=== PATIENT | female | born 1960 | race Caucasian/White ===

== ENCOUNTER → 2017-03-19 | Outpatient (CLI) | payer BC ==
--- NOTE | 2017-03-19 10:11 | US ---
EXAM DESCRIPTION: Venous,Lower Extremity LT CLINICAL HISTORY: PHLEBITIS AND THROMBOPHLEBITIS OF SUPERFICIAL LOW EXT COMPARISON: None Available. TECHNIQUE: Left lower extremity venous duplex FINDINGS: There is no DVT identified. There is normal color flow observed with good flow augmentation. All deep veins compress normally. IMPRESSION: Negative for DVT Electronically signed by: Fish Choi MD 03/19/2017 10:09 AM CDT
== END | disposition home or self-care (01) ==
LOC: US 09:18
PROVIDERS: ATTEND Family Medicine
DX: I80.00 Phlebitis and thrombophlebitis of superficial vessels of unspecified lower extremity (principal); R60.0 Localized edema

== ENCOUNTER → 2017-08-06 | Outpatient (CLI) | payer BC | END | disposition home or self-care (01) | LOC: GMAM 14:52 | PROVIDERS: ATTEND Family Medicine | DX: R35.0 Frequency of micturition (principal) ==

== ENCOUNTER → 2017-08-08 | Outpatient (CLI) | payer BC, OTHER ==
--- NOTE | 2017-08-10 08:03 | MRI ---
MRI right hip without contrast INDICATION: Right hip pain times several years no specific trauma TECHNIQUE: Noncontrast MR imaging right hip standard protocol FINDINGS: Metal artifact is noted in the pubic regions likely from previous bladder suspension. Minimal osteophytes and small ossicles are noted in the superior acetabulum the left greater than right. No osteonecrosis or fracture. Vague anterior superior labral defects and volume loss bilaterally indicate indicating nondisplaced labral tears. There is chondral thinning in the anterior superior acetabulum right hip well shown on the sagittal images. This is grade 3-4. No gluteal rupture or retraction. There is thinning of the ligamentum teres but there is continuity. No additional internal derangement. IMPRESSION: Bilateral anterior superior labral tears with adjacent chondrosis Focal grade 3-4 chondrosis anterior superior acetabulum right hip well shown on the sagittal images Metal artifact from previous surgery likely bladder suspension involving the right and left upper pubic bones. No osteonecrosis or fracture. Electronically signed by: Jaron Ozuna MD 08/10/2017 8:02 AM [facility]
== END | disposition home or self-care (01) ==
LOC: MRI 11:06
PROVIDERS: ATTEND Family Medicine
DX: M16.11 Unilateral primary osteoarthritis, right hip (principal); R35.0 Frequency of micturition

== ENCOUNTER → 2018-02-05 | Outpatient (CLI) | payer BC ==
--- NOTE | 2018-02-05 10:48 | MRI ---
EXAM DESCRIPTION: Cervical Spine: MRI. CLINICAL HISTORY: CERVICAL RADICULOPATHY COMPARISON: MRI scan lumbar spine 06/04/2015. TECHNIQUE: Multiplanar MRI, multiple sequences, non-contrast High-field. FINDINGS: C3-4: Normal signal in the disc and disc space preserved. Small left uncinate spur narrowing the left neural foramen. Canal and right neuroforamen are patent. Negative facets. C4-5: Disc desiccation anterior bulging and posterior disc space loss. Posterior broad-based disc bulge slightly more to the right of midline abutting the cord and the right C5 nerve. Left uncinate spur and bilateral neural foraminal narrowing. Moderate canal narrowing. Negative facets. C5-6: Disc desiccation and anterior disc bulging and endplate ridging. Mild disc space loss. Posterior broad-based 3 mm disc bulge abutting the cord. Bilateral uncinate spurs. Moderate right neural foraminal narrowing and left neural foraminal stenosis. Negative facets. C7-T1: Minimal disc desiccation and disc space loss. Trace posterior bulge. Canal and foramina are patent. Facets are negative. Normal signal in the remaining discs with no bulging. Disc spaces preserved. Canal and neural foramina are patent. Facets negative. No scoliosis. Spine is normally lordotic. No cord compression or cord edema. Atlantoaxial joint is minimally hypertrophied.. Base of the cerebellar tonsils is at the level of the foramen magnum. Paravertebral soft tissues is unremarkable. Vertebral bodies are not compressed at any level. Normal marrow signal in the remaining vertebral bodies and the posterior elements. IMPRESSION: 1. C5-6 disc desiccation and posterior bulging. Left uncinate spur and disc bulge causing left neural foraminal stenosis. 2. Right posterior bulge of the C4-5 disc abutting the cord and the right C5 nerve. Electronically signed by: Angelito Loredo MD 02/05/2018 10:45 AM CDT
== END ==
LOC: MRI 06:44
PROVIDERS: ATTEND Family Medicine
DX: M54.12 Radiculopathy, cervical region (principal); M50.022 Cervical disc disorder at C5-C6 level with myelopathy

== ENCOUNTER → 2018-02-06 | Outpatient (CLI) | payer BC ==
--- NOTE | 2018-02-06 10:25 | MRI ---
EXAM DESCRIPTION: Brain w/wo Contrast: Magnetic Resonance Imaging. CLINICAL HISTORY: NEOPLASM OF PINEAL GLAND COMPARISON: MRI scan of the brain and pituitary gland 09/12/2010. TECHNIQUE: Multiplanar, high-field MRI, multiple conventional sequences, without and with gadolinium IV contrast. No adverse reactions. Multiple axial diffusion sequences. FINDINGS: Homogeneous hyperintense CSF signal in the pineal gland. Decreased T1 signal also similar to CSF low signal. Post contrast, vessels around the pineal gland enhance, but no enhancement in the gland. Normal FLAIR and T2-weighted signal in the periventricular white matter and flanagan-white matter junctions of the cerebral hemispheres. . Normal signal in the bilateral basal ganglia. No hemorrhage, no cerebral edema, no mass-effect. Normal contrast enhancement. Normal signal in the brainstem and cerebellar hemispheres. No hemorrhage, no cerebral edema, no mass-effect. Normal contrast enhancement. Concordance of the diffusion and non-diffusion sequences with no evidence of acute or subacute infarction. Cortical sulci, ventricles, and other CSF spaces, and the subdural spaces are normally configured.. No effacement or displacement. No midline shift. No extra-axial hemorrhage. Normal contrast enhancement. Normal signal in the bilateral mastoid air cells. No mass effect in the bilateral Cerebellopontine angles. Normal contrast enhancement. Pituitary gland occupies most of the sella. Normal contrast enhancement. Base of the cerebellar tonsils is at the level of the foramen magnum. Normal signal in the included paranasal sinuses. The bony calvarium is intact. IMPRESSION: 1. 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 Normal enhancement of the surrounding vessels. 2. No intra-axial extra-axial hemorrhage, no mass effect or cerebral edema. Normal intra-axial extra-axial contrast enhancement. 3. Normal noncontrast MRI diffusion study with no evidence of acute or subacute infarction. Electronically signed by: Angelito Loredo MD 02/06/2018 10:24 AM CDT
== END ==
LOC: MRI 07:00
PROVIDERS: ATTEND Family Medicine
DX: D35.4 Benign neoplasm of pineal gland (principal); M54.12 Radiculopathy, cervical region

== ENCOUNTER → 2018-04-13 | Outpatient (CLI) | payer BC | LOC: GMATM 13:47 | PROVIDERS: ATTEND Nurse Practitioner Family | DX: N20.0 Calculus of kidney (principal) ==

== ENCOUNTER → 2018-09-11 | Outpatient (CLI) | payer BC ==
--- NOTE | 2018-09-11 10:29 | CT ---
EXAM DESCRIPTION: Abdomen/Pelvis w/wo Contrast: Computed Tomography. CLINICAL HISTORY: 03932 COMPARISON: None. TECHNIQUE: Spiral-axial scans at 5 x 5 mm intervals through the abdomen and pelvis before and after standard dose nonionic IV contrast. No oral contrast. Coronal and sagittal 2.0 mm reconstructions. 5 mm Delayed helical-axial scans, liver through the pubic symphysis. No adverse reactions. Total Exam DLP 1283.84 mGy - cm. This exam was performed according to our departmental CT dose-optimization program which includes automated exposure control, adjustment of the mA and/or kV according to patient size and/or use of iterative reconstruction technique; to reduce radiation dose to as low as reasonably achievable (ALARA). FINDINGS: Lung bases and pleura: Negative. Liver, Stomach, Spleen, Adrenal Glands: Unremarkable. Pancreas, Gallbladder, Ducts: Gallbladder visualized. Duct not dilated partially visualized. Pancreas negative. Kidneys and Ureters: Unremarkable. Mesentery: No stranding or fascial thickening. No free air or free fluid. Aorta: Unremarkable. Small Bowel: Minimal fluid distally with no distention. Terminal Ileum/Cecum: Distended by fecal material. Appendix not visualized. No fatty stranding. Colon: Diffuse fecal material with redundant transverse colon. No significant distention or air-fluid levels. No fatty stranding. Pelvic Organs: Retroverted small uterus. Ovaries partially visualized with bilateral follicles and cysts. No free fluid. Spine and Bony Pelvis: Negative. Abdominal Wall/Back Soft Tissues: Unremarkable. IMPRESSION: No free fluid or free air. No organomegaly. No peritoneal or retroperitoneal mass. Bilateral ovarian prominent follicles. If this region is symptomatic, consider pelvic ultrasound. Moderate fecal matter throughout the colon with distention of the cecum. Electronically signed by: Angelito Loredo MD 09/11/2018 10:28 AM [employer]
== END ==
LOC: CT 08:14
PROVIDERS: ATTEND Urology
DX: R31.9 Hematuria, unspecified (principal)

== ENCOUNTER → 2019-01-24 | Outpatient (CLI) | payer BC ==
--- NOTE | 2019-01-24 14:43 | CT ---
EXAM DESCRIPTION: CT angiogram chest with contrast CLINICAL HISTORY: Chest Pain. Bilateral pulmonary emboli on previous CT chest COMPARISON: 01/08/2019 TECHNIQUE: Spiral CT with multiplanar reformatted images. Intravenous iodinated nonionic contrast. 3-D reconstructions This exam was performed according to our departmental dose-optimization program, which includes automated exposure control, adjustment of the mA and/or kV according to patient size and/or use of iterative reconstruction technique. FINDINGS: Minimal residual filling defect at the site of previous embolus in the left lower lobe pulmonary arteries, axial series 2 image 60-63. A small residual nonocclusive thrombus at the site of the previous focal occlusive thrombus within right lower lobe pulmonary artery axial series 2 image 54-57 No acute pulmonary embolus. Otherwise normal contrast opacification of the pulmonary arteries Normal contrast opacification of the cardiac chambers and aorta. No pulmonary edema, infiltrate or effusion. No pneumothorax. No acute bony abnormality No mass or adenopathy in the visualized upper abdomen IMPRESSION: Clot retraction with subtle linear filling defects in the bilateral lower lobe pulmonary arteries at the site of the previously identified emboli on the study from 01/08/2019. No acute pulmonary embolus No other acute cardiopulmonary process Electronically signed by: Fish Greene MD 01/24/2019 2:41 PM CDT
== END ==
LOC: CT 13:22
PROVIDERS: ATTEND Nurse Practitioner Family
DX: R07.82 Intercostal pain (principal); R07.89 Other chest pain; Z86.711 Personal history of pulmonary embolism

== ENCOUNTER → 2019-02-17 | Outpatient (CLI) | payer BC | LOC: GMAM 12:34 | PROVIDERS: ATTEND Family Medicine | DX: M15.3 Secondary multiple arthritis (principal) ==

== ENCOUNTER → 2019-02-27 | Outpatient (CLI) | payer BC | LOC: LAB.NP 07:08 | PROVIDERS: ATTEND Internal Medicine Hematology & Oncology | DX: D53.9 Nutritional anemia, unspecified (principal); R53.83 Other fatigue ==

== ENCOUNTER → 2019-03-04 | Outpatient (CLI) | payer BC ==
--- NOTE | 2019-03-04 09:20 | CT ---
EXAM DESCRIPTION: Chest w/Contrast CLINICAL HISTORY: 58 years, Female, OTHER PULMONARY EMBOLISM WITHOUT ACUTE COR PULMONALE COMPARISON: Previous CTA chest January 24, 2019 and January 08, 2019 TECHNIQUE: Thin-section noncontrast axial CT images are obtained according to our protocol. Reconstructed MPR images are created and reviewed as well. FINDINGS: Lungs: Previous studies showed bilateral pulmonary emboli. Normal enhancement of the central pulmonary arteries on the present exam. Technique is not optimized for evaluation of peripheral pulmonary arteries. Mediastinum: Lymph nodes are normal in size. Normal vascular contours. Heart size is normal with no pericardial effusion. Chest wall/axilla: No mass or adenopathy. Lower neck/supraclavicular: No mass or adenopathy. Upper abdomen: Unremarkable upper abdominal viscera. Coronal and sagittal reformatted images confirm the findings. IMPRESSION: No acute process is identified in the chest. This exam was performed according to our departmental dose-optimization program, which includes automated exposure control, adjustment of the mA and/or kV according to patient size and/or use of iterative reconstruction technique. Total DLP equals 1991.35 mGycm. Electronically signed by: Rebel Faustin MD 03/04/2019 9:18 AM CDT
--- NOTE | 2019-03-04 09:52 | CT ---
EXAM DESCRIPTION: CT ABDOMEN AND PELVIS WITH CONTRAST CLINICAL HISTORY: Other pulmonary embolism without acute cor pulmonale COMPARISON: Previous CT abdomen and pelvis February 09, 2019 TECHNIQUE: CT of the abdomen and pelvis are performed during IV bolus administration of routine adult dose of nonionic iodinated IV contrast. No oral contrast. FINDINGS: In the lower chest, the lung bases are clear. Heart size is normal. CT abdomen Few tiny cysts in both kidneys. Otherwise the liver, spleen, pancreas, gallbladder, adrenal glands, stomach and kidneys are unremarkable in appearance. No inflammation around the pancreas. No renal stones or hydronephrosis. No bowel dilatation to suggest obstruction. No free air or free fluid. Delayed images show normal contrast accumulation in the urinary collecting systems. No filling defects in the renal pelves. CT pelvis Appendix appears normal. No inflammation around the cecum or terminal ileum or sigmoid colon. Bladder and distal ureters are negative for stones. Normal enhancement of pelvic vessels. No inguinal or lower pelvic adenopathy. Uterus is surgically absent. Normal ovaries. Bone window images are negative for fracture or lytic lesion. Coronal and sagittal reformatted images confirm the findings. IMPRESSION: No acute upper abdominal process. No acute process in the pelvis. This exam was performed according to our departmental dose-optimization program, which includes automated exposure control, adjustment of the mA and/or kV according to patient size and/or use of iterative reconstruction technique. Total DLP equals 991.35 mGycm. Electronically signed by: Rebel Faustin MD 03/04/2019 9:49 AM CDT
== END ==
LOC: CT 08:30
PROVIDERS: ATTEND Internal Medicine Hematology & Oncology
DX: I26.99 Other pulmonary embolism without acute cor pulmonale (principal)

== ENCOUNTER → 2019-07-28 | Outpatient (CLI) | payer BC | LOC: LAB.O 11:24 | PROVIDERS: ATTEND Internal Medicine Hematology & Oncology | DX: I26.99 Other pulmonary embolism without acute cor pulmonale (principal); R53.83 Other fatigue; D53.9 Nutritional anemia, unspecified ==

== ENCOUNTER → 2019-09-18 | Outpatient (CLI) | payer BC | LOC: GMAM 10:26 | PROVIDERS: ATTEND Family Medicine | DX: D64.9 Anemia, unspecified (principal); D50.9 Iron deficiency anemia, unspecified ==

== ENCOUNTER → 2020-03-15 | Outpatient (CLI) | payer BC | LOC: GMAM 14:14 | PROVIDERS: ATTEND Family Medicine | DX: D64.9 Anemia, unspecified (principal) ==

== ENCOUNTER 2020-05-17 17:43 | Emergency (ER) | payer BC, OTHER ==
[2020-05-17 17:58] VITALS: TEMP 97.8
[2020-05-17] MEDS ORDERED: ONDANSETRON INJ 4 MG/2 ML VIAL IV ONE (17:58)
[2020-05-17] MEDS ORDERED: SODIUM CHLORIDE 0.9% (FLUSH) 10 ML SYG IV PRN (17:58)
[2020-05-17] MEDS ORDERED: SODIUM CHLORIDE 0.9% 1000ML 1,000 ML IVS ONE (17:59)
--- NOTE | 2020-05-17 18:28 | RAD ---
EXAM DESCRIPTION: Chest x-ray one view CLINICAL HISTORY:59 years Female, back pain Comparison: None FINDINGS: No focal lung consolidation. No pleural effusion. No pneumothorax. Cardiac and mediastinal silhouette is unremarkable. No acute osseous abnormality. Soft tissues are unremarkable. IMPRESSION: No acute findings. No focal lung consolidation. Electronically signed by: Salty Chao DO 05/17/2020 6:26 PM CDT
--- NOTE | 2020-05-17 19:10 | ED.PDOC ---
History of Present Illness - General Chief Complaint: Chest Pain/MT Stated Complaint: back and left shoulder pain Time Seen by Provider: 05/17/20 17:56 Source: patient, RN notes reviewed, Vital Signs reviewed, family - Exam Limitations: no limitations - History of Present Illness Initial Comments: Patient is a 59-year-old white female who presents with complaints of some back pain and shoulder pain as well as some mild nausea. Patient has a history of pulmonary emboli and is on Eliquis. Patient denies any vomiting or diarrhea. Patient denies any chest pain or shortness of breath. Patient denies any dysuria nothing seems to make the pain better or worse. It is nonradiating. Timing/Duration: 4-6 hours Severity: moderate Improving Factors: nothing Worsening Factors: nothing Associated Symptoms: nausea/vomiting - nausea only Allergies/Adverse Reactions: Allergies NO KNOWN ALLERGY Allergy (Verified 05/17/20 17:58) Home Medications: Ambulatory Orders Cephalexin 500 mg PO TID 01/08/19 Doxycycline Hyclate 100 mg PO BID 01/08/19 Calcium 1,000 units PO DAILY 01/09/19 Cetirizine HCl [Zyrtec] 1 tablet PO DAILY 01/09/19 Cholecalciferol [D 1000] 2 tablet PO DAILY 01/09/19 Vitamin C 100 mg PO DAILY 01/09/19 Apixaban [Eliquis] 5 mg PO BID #90 tab 01/10/19 Ondansetron [Ondansetron Odt] 4 mg PO Q6H #20 tab 05/17/20 Tramadol HCl [Tramadol Hydrochloride] 50 mg PO Q6H #20 tab 05/17/20 Review of Systems - Review of Systems Constitutional: States: no symptoms reported, see HPI. Denies: chills, fever, malaise, weakness EENTM: States: no symptoms reported. Denies: eye pain, blurred vision, double vision Respiratory: States: no symptoms reported. Denies: cough, short of breath Cardiology: States: no symptoms reported. Denies: chest pain, palpitations, syncope Gastrointestinal/Abdominal: States: see HPI, nausea. Denies: abdominal pain, constipation, diarrhea, vomiting Genitourinary: States: no symptoms reported. Denies: dysuria, frequency Musculoskeletal: States: see HPI, back pain, joint pain - shoulder, neck pain Skin: States: no symptoms reported. Denies: change in color, rash Neurological: States: no symptoms reported. Denies: headache, numbness, paresthesia, tingling, tremors, weakness Endocrine: States: no symptoms reported. Denies: increased hunger, increased thirst, increased urine Hematologic/Lymphatic: States: anemia, easy bleeding - pt is on Eliquis. Denies: blood clots All other Systems: Reviewed and Negative Past Medical History (General) - Patient Medical History Hx Seizures: No Hx Stroke: No Hx Dementia: No Hx Asthma: No Hx of COPD: No Hx Cardiac Disorders: Yes - RBBB Hx Congestive Heart Failure: No Hx Pacemaker: No Hx Hypertension: No Hx Thyroid Disease: No Hx Diabetes: No Hx Gastroesophageal Reflux: No Hx Renal Disease: No Hx Cancer: No Hx of HIV: No Hx Hepatitis C: No Hx MRSA: No Surgical History: Hysterectomy - Vaccination History Hx Tetanus, Diphtheria Vaccination: No Hx Influenza Vaccination: Yes Hx Pneumococcal Vaccination: No - Social History Hx Tobacco Use: No Hx Alcohol Use: No Hx Substance Use: No Hx Substance Use Treatment: No Hx Depression: No Hx Physical Abuse: No Hx Emotional Abuse: No - Female History Patient is a Female of Child Bearing Age (10 -59 yrs old): No Family Medical History - Family History Father Living Status: Hx Family Asthma: No Hx Family Congestive Heart Failure: No Hx Family Hypertension: No Hx Family Stroke: No Hx Cardiac Disease: Yes - MT Hx Family Diabetes: No Hx Family Cancer: No Hx Family;Other: diedof heart attack Mother Living Status: Hx Family Asthma: No Hx Family Congestive Heart Failure: No Hx Family Hypertension: Yes Hx Family Stroke: No Hx Cardiac Disease: No Hx Family Diabetes: No Hx Family Cancer: No Hx Family;Other: mother from penumonia Sister Hx Family Asthma: No Hx Family Congestive Heart Failure: No Hx Family Hypertension: Yes Hx Family Stroke: No Hx Cardiac Disease: No Hx Family Diabetes: Yes - type 2 Hx Family Cancer: No Hx Family;Other: 3 living 2 from heart attack Physical Exam - Physical Exam General Appearance: Alert, Anxious, Well Developed, Well Groomed, Well Hydrated, Well Nourished Eye Exam: bilateral normal Ears, Nose, Throat: hearing grossly normal, normal ENT inspection, normal pharynx Neck: non-tender, full range of motion, supple Respiratory: chest non-tender, lungs clear, normal breath sounds, no respiratory distress Cardiovascular/Chest: normal peripheral pulses, regular rate, rhythm, no edema, no gallop, no JVD, no murmur Peripheral Pulses: radial,right: 2+, radial,left: 2+ Gastrointestinal/Abdominal: normal bowel sounds, non tender, soft, no organomegaly, no pulsatile mass Back Exam: normal inspection, no CVA tenderness, no vertebral tenderness Extremity: normal range of motion, non-tender, normal inspection Neurologic: allergy physician II-XII nml as tested, no motor/sensory deficits, alert, normal mood/affect, oriented x 3 Skin Exam: normal color, warm/dry Lymphatic: no adenopathy Progress - Progress Progress: Differential diagnosis: Pyelonephritis, UTI, gastroenteritis, recurrent PE among others. 05/17/20 19:58 Patient lab work is unremarkable. D-dimer is in the normal range and therefore highly unlikely to be a PE that is recurred. Additionally patient is taking her Eliquis twice a day as instructed. Labs are unremarkable. Patient's nausea has resolved after IV Zofran and she feels much better after the liter fluid. Back pain is still present but she has requested p.o. pain medicine and will reassess once this has had a chance to work on her back pain. 05/17/20 20:48 Patient's pain improved with the pain medication. Plan on discharge home at this time. Plan on discharge with a prescription for Zofran and for tramadol. I discussed this plan of care with the patient and her and they voiced agreement and understanding. Chencho Salvador M.D. #[id number] - Results/Orders Results/Orders: 05/17/20 17:58 Sodium Chloride 0.9% (Flush) [Saline Flush Syringe] 10 ml IV PRN PRN 05/17/20 17:59 EKG Stat Pulse Ox Stat Laboratory Results - last 24 hr 05/17/20 05/17/20 05/17/20 18:04 18:04 18:04 WBC 6.7 RBC 4.31 Hgb 14.0 Hct 40.5 MCV 94.0 MCH 32.6 H MCHC 34.6 RDW 12.8 Plt Count 273 MPV 8.0 Absolute Neuts (auto) 4.00 Absolute Lymphs (auto) 1.90 Absolute Monos (auto) 0.60 Absolute Eos (auto) 0.10 Absolute Basos (auto) 0.00 Neutrophils % 60.4 Lymphocytes % 28.5 Monocytes % 8.3 Eosinophils % 2.2 Basophils % 0.6 PT 9.5 INR < 1.00 PTT (SP) 27.0 D-Dimer, Quantitative < 131.0 L Sodium 139 Potassium 3.8 Chloride 102 Carbon Dioxide 28 Anion Gap 12.8 BUN 15 Creatinine 0.64 BUN/Creatinine Ratio 23.4 H Random Glucose 90 Serum Osmolality 277.9 Calcium 9.3 Magnesium 2.1 Total Bilirubin 0.5 Direct Bilirubin 0.1 Indirect Bilirubin 0.4 AST 21 ALT 17 Alkaline Phosphatase 74 Creatine Kinase 67 CK-MB (CK-2) 0.8 CK-MB (CK-2) % Not Reportable Troponin I < 0.02 B-Natriuretic Peptide < 15.0 Serum Total Protein 7.4 Albumin 4.2 Urine Color Urine Appearance Urine pH Ur Specific Deloit Urine Protein Urine Glucose (UA) Urine Ketones Urine Blood Urine Nitrite Urine Bilirubin Urine Urobilinogen Ur Leukocyte Esterase Urine RBC Urine WBC Ur Epithelial Cells Urine Bacteria 05/17/20 18:58 WBC RBC Hgb Hct MCV MCH MCHC RDW Plt Count MPV Absolute Neuts (auto) Absolute Lymphs (auto) Absolute Monos (auto) Absolute Eos (auto) Absolute Basos (auto) Neutrophils % Lymphocytes % Monocytes % Eosinophils % Basophils % PT INR PTT (SP) D-Dimer, Quantitative Sodium Potassium Chloride Carbon Dioxide Anion Gap BUN Creatinine BUN/Creatinine Ratio Random Glucose Serum Osmolality Calcium Magnesium Total Bilirubin Direct Bilirubin Indirect Bilirubin AST ALT Alkaline Phosphatase Creatine Kinase CK-MB (CK-2) CK-MB (CK-2) % Troponin I B-Natriuretic Peptide Serum Total Protein Albumin Urine Color Yellow Urine Appearance Clear Urine pH 6.0 Ur Specific Deloit 1.010 Urine Protein Negative Urine Glucose (UA) Negative Urine Ketones Trace Urine Blood Trace-intact H Urine Nitrite Negative Urine Bilirubin Negative Urine Urobilinogen 0.2 Ur Leukocyte Esterase Negative Urine RBC 0-1 Urine WBC 0-1 Ur Epithelial Cells 0-1 Urine Bacteria Rare EXAM DESCRIPTION: Chest x-ray one view CLINICAL HISTORY:59 years Female, back pain Comparison: None FINDINGS: No focal lung consolidation. No pleural effusion. No pneumothorax. Cardiac and mediastinal silhouette is unremarkable. No acute osseous abnormality. Soft tissues are unremarkable. IMPRESSION: No acute findings. No focal lung consolidation. Electronically signed by: Salty Chao DO 05/17/2020 6:26 PM EKG performed 17 May 2020 at 1746 hrs.: Normal sinus rhythm at 82 bpm, right bundle branch block, abnormal EKG. This EKG is unchanged from an EKG performed on 01/08/2019 at 2249 hrs. Vital Signs 05/17/20 05/17/20 05/17/20 17:54 18:03 18:43 Temperature 97.8 F Pulse Rate 73 Pulse Rate [ 76 74 apical] Respiratory 18 16 Rate Blood Pressure 153/62 120/60 [la] O2 Sat by Pulse 99 100 99 Oximetry 05/17/20 19:30 Temperature Pulse Rate Pulse Rate [ 74 apical] Respiratory 16 Rate Blood Pressure 131/67 [la] O2 Sat by Pulse 99 Oximetry Departure - Departure Clinical Impression: Nausea Acute lumbar back pain Qualifiers: Back pain laterality: left Sciatica presence: without sciatica Qualified Code(s): M54.5 - Low back pain Time of Disposition: 20:49 Disposition: Discharge to Home or Self Care Condition: Good Departure Forms: ED Discharge - Pt. Copy, Patient Portal Self Enrollment Instructions: DI for Chest Pain, Low Back Pain (DC), Nausea and Vomiting, Adult (DC) Activity: increase activity as tolerated Referrals: Fish Canales MD [Primary Care Provider] - 1-5 Days Prescriptions: Ondansetron [Ondansetron Odt] 4 mg PO Q6H #20 tab Tramadol HCl [Tramadol Hydrochloride] 50 mg PO Q6H #20 tab Home Medications: Ambulatory Orders Cephalexin 500 mg PO TID 01/08/19 Doxycycline Hyclate 100 mg PO BID 01/08/19 Calcium 1,000 units PO DAILY 01/09/19 Cetirizine HCl [Zyrtec] 1 tablet PO DAILY 01/09/19 Cholecalciferol [D 1000] 2 tablet PO DAILY 01/09/19 Vitamin C 100 mg PO DAILY 01/09/19 Apixaban [Eliquis] 5 mg PO BID #90 tab 01/10/19 Ondansetron [Ondansetron Odt] 4 mg PO Q6H #20 tab 05/17/20 Tramadol HCl [Tramadol Hydrochloride] 50 mg PO Q6H #20 tab 05/17/20
[2020-05-17] MEDS ORDERED: fentaNYL CITRATE INJ 50 MCG/ML AMP IV ONE (19:43)
[2020-05-17 20:57] VITALS: BP 116/76; O2SAT 99
== END 2020-05-17 20:57 | disposition home or self-care (01) ==
LOC: ER 17:43
DX: M54.5 Low back pain (principal); R11.0 Nausea; M25.512 Pain in left shoulder; I45.10 Unspecified right bundle-branch block; R94.31 Abnormal electrocardiogram [ECG] [EKG]; M54.2 Cervicalgia; Z79.01 Long term (current) use of anticoagulants; Z79.899 Other long term (current) drug therapy; Z86.711 Personal history of pulmonary embolism
CPT/HCPCS: 36415; 71045; 80048; 80076; 81001; 82550; 82553; 83880; 84484; 85025; 85379; 85610; 85730; 93005; 94760; J2405; J3010; J7030

== ENCOUNTER 2020-06-11 10:14 | Emergency (ER) | payer OTHER ==
--- NOTE | 2020-06-11 10:27 | ED.PDOC ---
History of Present Illness - General Time Seen by Provider: 06/11/20 10:16 Source: patient, RN notes reviewed, Vital Signs reviewed, old records Exam Limitations: no limitations - History of Present Illness Initial Comments: 59 yo F with hx of PE on eliquis comes in with bright red blood in rectum and hematuria one day. Had 4 BM of bloody stool, dark red. no black bm. bilatera Lower abdominal cramping. Denies any recent trauma. no hx of GI bleed. hx of polyp. no hx of transfusions. denies shortness of breath, palpations, dizziness. denies vaginal bleeding. hx parital hysterectomy. Was diagnosed with COVID 4 days ago after she got body aches, nausea, "flu-like" symptoms. no known covid exposure. denies sore throat or shortness of breath. Timing/Duration: 4-6 hours Allergies/Adverse Reactions: Allergies NO KNOWN ALLERGY Allergy (Verified 06/11/20 10:39) Home Medications: Ambulatory Orders Calcium 1,000 units PO DAILY 01/09/19 Vitamin C 100 mg PO DAILY 01/09/19 Apixaban [Eliquis] 5 mg PO BID #90 tab 01/10/19 Dexamethasone [Decadron] 4 mg PO DAILY #7 tab 06/11/20 Vitamin C-Vitamin D-Zinc [D3/Vitamin C/Zinc] 1 tab PO 06/11/20 Review of Systems - Review of Systems Constitutional: States: malaise. Denies: chills, fever EENTM: Denies: blurred vision, double vision, throat pain, throat swelling Respiratory: Denies: cough, short of breath, wheezing Cardiology: Denies: chest pain, palpitations Gastrointestinal/Abdominal: States: abdominal pain, constipation - hx of chronic constipation, none currently. . Denies: diarrhea, nausea, vomiting Genitourinary: States: hematuria. Denies: discharge Musculoskeletal: States: back pain. Denies: joint pain, muscle pain Neurological: Denies: paresthesia, tingling, tremors Endocrine: Denies: unexplained weight gain, unexplained weight loss Hematologic/Lymphatic: Denies: easy bleeding, easy bruising Past Medical History (General) - Patient Medical History Hx Seizures: No Hx Stroke: No Hx Dementia: No Hx Asthma: No Hx of COPD: No Hx Cardiac Disorders: Yes - RBBB Hx Congestive Heart Failure: No Hx Pacemaker: No Hx Hypertension: No Hx Thyroid Disease: No Hx Diabetes: No Hx Gastroesophageal Reflux: No Hx Renal Disease: No Hx Cancer: No Hx of HIV: No Hx Hepatitis C: No Hx MRSA: No - Vaccination History Hx Tetanus, Diphtheria Vaccination: No Hx Influenza Vaccination: Yes Hx Pneumococcal Vaccination: No - Social History Hx Tobacco Use: No Hx Alcohol Use: No Hx Substance Use: No Hx Substance Use Treatment: No Hx Depression: No Hx Physical Abuse: No Hx Emotional Abuse: No Family Medical History - Family History Father Living Status: Hx Family Asthma: No Hx Family Congestive Heart Failure: No Hx Family Hypertension: No Hx Family Stroke: No Hx Cardiac Disease: Yes - NM Hx Family Diabetes: No Hx Family Cancer: No Hx Family;Other: diedof heart attack Mother Living Status: Hx Family Asthma: No Hx Family Congestive Heart Failure: No Hx Family Hypertension: Yes Hx Family Stroke: No Hx Cardiac Disease: No Hx Family Diabetes: No Hx Family Cancer: No Hx Family;Other: mother from penumonia Sister Hx Family Asthma: No Hx Family Congestive Heart Failure: No Hx Family Hypertension: Yes Hx Family Stroke: No Hx Cardiac Disease: No Hx Family Diabetes: Yes - type 2 Hx Family Cancer: No Hx Family;Other: 3 living 2 from heart attack Physical Exam - Physical Exam General Appearance: Alert, Comfortable, No apparent distress, Well Developed, Well Groomed, Well Hydrated, Well Nourished, Other - stable gait no assistive devices Eye Exam: bilateral normal Ears, Nose, Throat: hearing grossly normal, normal ENT inspection, normal pharynx Neck: non-tender, full range of motion, supple Respiratory: chest non-tender, lungs clear, normal breath sounds, no respiratory distress, no accessory muscle use Cardiovascular/Chest: normal peripheral pulses, no edema, no gallop, no JVD, no murmur, tachycardia Peripheral Pulses: radial,right: 2+, radial,left: 2+, posterior tibialis,right: 2+, posterior tibialis,left: 2+ Gastrointestinal/Abdominal: normal bowel sounds, non tender, soft, no organomegaly, no pulsatile mass Rectal Exam: normal exam, normal rectal tone, heme positive stool Back Exam: normal inspection, no CVA tenderness, no vertebral tenderness Extremity: normal range of motion, non-tender, normal inspection, no pedal edema, no calf tenderness, normal capillary refill Neurologic: clinic specialist II-XII nml as tested, no motor/sensory deficits, alert, normal mood/affect, oriented x 3 Skin Exam: normal color, warm/dry Progress - Progress Progress: 06/11/20 10:47 partial ddx: Diverticulitis, uti/stone, internal Hemorrhoids, enteritis/colitis, mass. 06/11/20 12:28 Patient resting comfortably. HR improved 95. Tachycardia most likely multifactorial given COVID/fever. Will recheck H/H which I expect to be decrease slightly due to IVF. Will make sure it has not decreased drastically. pending CT scan. repeat H/H consistent with IVF (drop hgb 2). VSS, HR 92. 06/11/20 14:01 CT shows edematous colon. This could be due to covid/infectious, less likely ischemia due to being on eliquis. will give a course of steroids. Strict return warnings given. Also seen bilateral renal cysts, similar to the prior examination of 03/04/2019. The data reviewed when caring for this patient included: nurse notes, prior records, etc. The history and assessments from nurses notes were reviewed and considered, and the patient's home medication list was also reviewed and considered. My assessment and the results of testing completed here in the ED were discussed with the patient. All questions were answered, and they express understanding of my assessment and the plan. They have been instructed to return if their symptoms worsen, and have been asked to follow up with their primary care physician, GI and urology to recheck today's presenting complaint. Strict return precautions given. I have reviewed medication, benefits, alternatives and side effects. Patient decided to proceed with medication. Pauline Flores DO #[id number] 06/11/20 14:12 - EKG/XRAY/CT EKG: Sinus, Tachy, RBBB Comments: no significnat change when compared to prior. Departure - Departure Clinical Impression: Colitis, COVID-19 Hematuria Qualifiers: Hematuria type: unspecified type Qualified Code(s): R31.9 - Hematuria, unspecif ied GI bleed Qualifiers: GI bleed type/associated pathology: unspecified gastrointestinal hemorrhage type Qualified Code(s): K92.2 - Gastrointestinal hemorrhage, unspecified Time of Disposition: 13:20 Disposition: Discharge to Home or Self Care Instructions: Blood in the Urine (Hematuria) in Adults, Colitis, Gastrointestinal Bleeding (DC) Referrals: Fish Canales MD [Primary Care Provider] - 1-2 Days JOSH HUDSON MD [Physicians] - 1-5 Days BO BERRY MD [Consulting Staff] - 1-5 Days Prescriptions: Dexamethasone [Decadron] 4 mg PO DAILY #7 tab Home Medications: Ambulatory Orders Calcium 1,000 units PO DAILY 01/09/19 Vitamin C 100 mg PO DAILY 01/09/19 Apixaban [Eliquis] 5 mg PO BID #90 tab 01/10/19 Dexamethasone [Decadron] 4 mg PO DAILY #7 tab 06/11/20 Vitamin C-Vitamin D-Zinc [D3/Vitamin C/Zinc] 1 tab PO 06/11/20 Additional Instructions: Follow up with your urologist in one week. Follow up with your sofia roenterologist in one-five days
[2020-06-11] MEDS ORDERED: SODIUM CHLORIDE 0.9% 1000ML 1,000 ML IVS PRN (10:35)
[2020-06-11] MEDS ORDERED: ONDANSETRON INJ 4 MG/2 ML VIAL IV ONE (10:36)
[2020-06-11] MEDS ORDERED: ONDANSETRON INJ 4 MG/2 ML VIAL ONE (10:36)
[2020-06-11] MEDS ORDERED: SODIUM CHLORIDE 0.9% 1000ML 1,000 ML ONE (10:36)
[2020-06-11] MEDS ORDERED: MORPHINE SULFATE INJ 10 MG/ML VIAL IV ONE (12:09)
--- NOTE | 2020-06-11 13:25 | CT ---
EXAM: Abdomen/Pelvis w/Contrast INDICATION: GI bleed. abd pain . COMPARISON: CT abdomen pelvis with contrast 03/04/2019 TECHNIQUE: CT of the abdomen and pelvis was performed following the administration of IV contrast. Multiple axial images and multiplanar reconstructions were generated. This exam was performed according to our departmental dose-optimization program, which includes automated exposure control, adjustment of the mA and/or kV according to patient size and/or use of iterative reconstruction technique. FINDINGS: Visualized chest: Minimal atelectasis in the dependent portions of the visualized lung bases. Heart size is within normal limits. Liver: Unremarkable appearance of the liver. Gallbladder: Unremarkable appearance of the gallbladder. Pancreas: Unremarkable appearance of the pancreas. Spleen: Unremarkable appearance of the spleen. Adrenal glands: Unremarkable appearance of the adrenal glands. Kidneys, ureters, bladder: Tiny rounded hypodensities in both kidneys are too small to definitively characterize, but are similar to the prior examination of 03/04/2019 and most compatible with tiny cysts. No striated nephrograms or hydronephrosis. No obstructing stones are identified. Unremarkable appearance of the visualized portions of the ureters. Unremarkable appearance of the urinary bladder. Stomach and bowel: Unremarkable appearance of the stomach. No dilated loops of small bowel. Markedly edematous appearance of the colon, worst at the splenic flexure, but extending to involve at least half of the length of the transverse colon and the entirety of the descending colon. There is near-complete obliteration of the lumen with notable mucosal hyperenhancement in the segments of greatest inflammation. Scattered colonic diverticulosis. The appendix is identified and appears normal. Uterus and adnexa: The uterus is either atrophic or surgically absent. Correlate with surgical history. No adnexal mass. Peritoneum: No free fluid. No pneumoperitoneum. Lymph nodes: Scattered small retroperitoneal lymph nodes are noted, none of which appear pathologically enlarged. Vasculature: No significant atherosclerotic plaque or obvious vascular occlusion on this nonangiographic examination. Bones: No acute fracture. No destructive osseous lesion. Degenerative changes in the spine and hips. Body wall: Tiny fat-containing umbilical hernia. Otherwise unremarkable appearance of the remaining visualized body wall soft tissues. IMPRESSION: 1. Markedly edematous appearance of the colon at the splenic flexure, extending to involve at least half the length of the transverse colon and the entirety of the descending colon. These findings are compatible with colitis, including infectious or ischemic etiologies. 2. Probable tiny bilateral renal cysts, similar to the prior examination of 03/04/2019. Electronically signed by: Janay Walsh MD 06/11/2020 1:23 PM CDT
[2020-06-11] MEDS ORDERED: DEXAMETHASONE INJ 4 MG/ML VIAL IV ONE (13:27)
[2020-06-11 14:12] VITALS: BP 105/60; TEMP 99.3; O2SAT 97
== END 2020-06-11 14:03 | disposition home or self-care (01) ==
LOC: ER 10:14
DX: U07.1 COVID-19 (principal); K92.2 Gastrointestinal hemorrhage, unspecified; K52.9 Noninfective gastroenteritis and colitis, unspecified; R31.9 Hematuria, unspecified; I25.2 Old myocardial infarction; I45.10 Unspecified right bundle-branch block; Z86.711 Personal history of pulmonary embolism; Z79.01 Long term (current) use of anticoagulants
CPT/HCPCS: 36415; 74177; 80053; 81001; 82270; 85014; 85018; 85025; 85610; 85730; 93005; J1100; J2270; J2405; J7030

== ENCOUNTER → 2020-06-22 | Outpatient (CLI) | payer OTHER ==
--- NOTE | 2020-06-23 11:17 | RAD ---
EXAM DESCRIPTION: Chest,2 Views CLINICAL HISTORY: COVID 19 COMPARISON: 05/17/2020 TECHNIQUE: PA/lateral FINDINGS/IMPRESSION: Left greater than right peripheral lung subtle airspace opacities suggest mild/early viral pneumonia (given history of Covid). No dense consolidation or significant upper lung involvement. No pleural effusion or pneumothorax. The heart is normal in size. No acute osseous abnormality. Electronically signed by: Rai Braun DO 06/23/2020 11:15 AM [facility]
== END ==
LOC: LAB.O 11:09
PROVIDERS: ATTEND Family Medicine
DX: U07.1 COVID-19 (principal); R31.9 Hematuria, unspecified; R71.8 Other abnormality of red blood cells; R09.02 Hypoxemia; R91.8 Other nonspecific abnormal finding of lung field

== ENCOUNTER → 2020-06-28 | Outpatient (CLI) | payer OTHER | LOC: GMAM 16:31 | PROVIDERS: ATTEND Family Medicine | DX: U07.1 COVID-19 (principal); R09.02 Hypoxemia ==

== ENCOUNTER → 2020-07-29 | Outpatient (CLI) | payer OTHER ==
--- NOTE | 2020-07-30 09:55 | MRI ---
Study: MRI of the Lumbar Spine. Indication: low back pain Technique: Multiplanar, multi sequence MRI of the lumbar spine was obtained without intravenous contrast. Comparison: June 04, 2015 Findings: The designated L5-S1 disc space level is visualized on axial T2 image 3 of series 501. Vertebral body height maintained. No marrow infiltrating lesion. Conus medullaris unremarkable. Mild dextrocurvature lower lumbar spine. L1-L2: Unremarkable L2-L3: Minimal disc space height loss and disc desiccation. No stenosis. Mild bilateral facet arthrosis. L3-L4: Mild disc space height loss and disc desiccation. 1 mm disc bulge. Moderate bilateral facet arthrosis. No stenosis. L4-L5: Mild to moderate disc space height loss and disc desiccation. 3.5 mm disc bulge with mild to moderate bilateral neural foraminal narrowing. Moderate bilateral facet arthrosis. Mild bilateral lateral recess narrowing. No spinal canal narrowing. L5-S1: 2 mm disc bulge bulge. Mild left and moderate right facet arthrosis. No stenosis Impression: Mild lumbar disc disease, most pronounced at L4-L5 where there is mild to moderate bilateral neural foraminal narrowing and mild bilateral recess narrowing. No spinal canal narrowing. Electronically signed by: Jaylan Bynum MD 07/30/2020 9:53 AM [facility]
== END ==
LOC: MRI 10:06
PROVIDERS: ATTEND Family Medicine
DX: M51.36 Other intervertebral disc degeneration, lumbar region (principal)

== ENCOUNTER → 2020-08-02 | Outpatient (CLI) | payer OTHER | LOC: GMAM 10:22 | PROVIDERS: ATTEND Family Medicine | DX: M25.559 Pain in unspecified hip (principal) ==

== ENCOUNTER 2020-08-23 05:49 | Day surgery (SDC) | payer OTHER ==
[2020-08-23] MEDS ORDERED: LIDOCAINE 1% 10 ML VIAL INJ ONE (05:50)
[2020-08-23] MEDS ORDERED: PROPOFOL 200 MG/20 ML VIAL IV ONE (05:50)
[2020-08-23] MEDS ORDERED: SODIUM CHLORIDE 0.9% 50 ML VIAL INJ ONE (05:50)
[2020-08-23] MEDS: BUPIVACAINE 0.25% INJ 30 ML VIAL INJ ONE (07:41)
[2020-08-23] MEDS: LIDOCAINE 1% W/ EPINEPHRINE 20 ML VIAL INJ ONE (07:41)
[2020-08-23] MEDS: methylPREDNISolone ACETATE 80 MG/ML VIAL ONE (07:41)
[2020-08-23 07:47] VITALS: BP 128/74; TEMP 97.8; O2SAT 99
--- NOTE | 2020-08-23 10:09 | RAD ---
EXAM DESCRIPTION: Fluoroscopy Up to 1Hr CLINICAL HISTORY: 59 years Female, BILATERAL HIP INJ COMPARISON: None. FINDINGS: Fluoroscopy time equals 9.7 seconds. Two spot film images were obtained during the procedure. First spot film image shows a needle near the neck of the pictured femur which is not labeled right or left. The second image shows the hip in frog-leg lateral position not labeled right or left. The clinical history suggests bilateral hip injection. IMPRESSION: Spot film images obtained during orthopedic procedure. Electronically signed by: Rebel Faustin MD 08/23/2020 10:07 AM [facility]
--- NOTE | 2020-08-25 08:58 | OP ---
DATE OF PROCEDURE: 08/23/20 PREOPERATIVE DIAGNOSIS: 1. Bilateral hip pain. POSTOPERATIVE DIAGNOSIS: 1. Bilateral hip pain. PROCEDURE: 1. Bilateral hip injection. SURGEON: Mal Rosas MD. LOGISTICS MANAGER: Angelito Rendon CST, SA-C. ANESTHESIA: Conscious sedation. COMPLICATIONS: None. FINDINGS: Normal anatomy. INDICATION: Ms. Ribeiro has a history of pain that is associated with several different diagnoses. She has had some injections which have given partial relief, however, she continues to have severe discomfort in the groin. Because of this, she has requested operative intervention to include injections. After discussing the risks, benefits and alternatives to that, the patient has given informed consent for that. PROCEDURE: The patient was brought to the Operating Room and placed in supine position. Conscious sedation was administered and the leg was flexed, abducted and externally rotated. The groin was prepped and fluoroscopic imaging was used to confirm needle placement into the hip joint through a medial portal. Once placement had been confirmed, a combination of lidocaine and Depo-Medrol were injected into the joint. After injection, the needle was withdrawn. Pressure was held on the injection site. A sterile band-aid was placed. The contralateral groin was prepped sterile 18-gauge needle was inserted into the joint using fluoroscopic imaging. He needle was withdrawn. Pressure was held on the puncture site and sterile bandage was placed. The patient was then taken back to the Day Surgery Unit. POSTOPERATIVE PLAN: The patient will be weight-bearing as tolerated. The patient will followup with us in 2 weeks. #[id number] MTDD
== END 2020-08-23 08:40 | disposition home or self-care (01) ==
LOC: AMB 05:49
PROVIDERS: ATTEND Orthopaedic Surgery
DX: M25.552 Pain in left hip (principal); M25.551 Pain in right hip; M16.0 Bilateral primary osteoarthritis of hip; I10 Essential (primary) hypertension; F32.9 Major depressive disorder, single episode, unspecified; M53.3 Sacrococcygeal disorders, not elsewhere classified; Z79.01 Long term (current) use of anticoagulants